=== PATIENT | female | born 1955 | race Caucasian/White ===

== ENCOUNTER 2024-02-18 04:28 | Emergency (ER) | payer MEDICARE ==
[~2024-02-18] VITALS: Ht 165.1 cm; Wt 73.9 kg
[2024-02-18 04:28] VITALS: BP 123/79; TEMP 97.1
[2024-02-18] MEDS ORDERED: LISI20TA37 PO (04:39)
[2024-02-18 05:28] LABS: BASO % 0.3 % (0.0-1.0); EOS # 0.1 10^3/uL (0.0-0.5); HEMATOCRIT 39.4 % (42.0-52.0); HEMOGLOBIN 13.5 g/dl (13.5-17.5); LYMPH % 29.6 % (24.0-44.0); MEAN CORPUSCULAR HEMOGLOBIN 30.4 pg (27.0-33.0); MEAN CORPUSCULAR HGB CONC 34.3 g/dl (32.0-36.5); MEAN CORPUSCULAR VOLUME 88.7 fl (80.0-96.0); MONO % 9.9 % (2.0-8.0); NEUTROPHILS % 58.8 % (36.0-66.0); PLATELET COUNT, AUTOMATED 374 10^3/uL (150-450); RED BLOOD COUNT 4.44 10^6/uL (4.30-6.10); WHITE BLOOD COUNT 10.2 10^3/uL (4.0-10.0)
[2024-02-18 05:50] LABS: LIPASE 35 U/L (12-53)
[2024-02-18 05:52] LABS: ALKALINE PHOSPHATASE 82 U/L (46-116); ALT/SGPT 33 U/L (7.0-40); AST/SGOT 19 U/L (<34); BILIRUBIN,DIRECT < 0.1 MG/DL (<0.4); BILIRUBIN,TOTAL 0.2 MG/DL (0.3-1.2); BLOOD UREA NITROGEN 21 MG/DL (9-23); CALCIUM LEVEL 9.1 MG/DL (8.3-10.6); CARBON DIOXIDE LEVEL 28 MMOL/L (20-31); CHLORIDE LEVEL 100 MMOL/L (98-107); CREATININE FOR GFR 0.75 MG/DL (0.70-1.30); GLOMERULAR FILTRATION RATE > 60.0 (>49); GLUCOSE, FASTING 110 MG/DL (74-106); POTASSIUM SERUM 4.2 MMOL/L (3.5-5.1); SODIUM LEVEL 135 MMOL/L (136-145); TOTAL PROTEIN 7.2 G/DL (5.7-8.2)
[2024-02-18] MEDS ORDERED: ISOVUE-370 76% 100ML VIAL As Ordered ONE (07:10)
[2024-02-18] MEDS: ONDANSETRON 4MG 2ML VIAL IV ONE (08:09)
[2024-02-18] MEDS: MORPHINE 4 MG/ML 1ML VIAL IV ONE (08:12)
[2024-02-18] MEDS: NS 500 ML IV ONE (08:16)
[2024-02-18 08:42] VITALS: O2SAT 96
[2024-02-18] MEDS ORDERED: metroNIDAZOLE (FLAGYL) 500MG TABLET PO ONE (08:45)
[2024-02-18] MEDS ORDERED: CIPROFLOXACIN 500MG TABLET PO ONE (08:45)
[2024-02-18] MEDS ORDERED: CIPR-249 PO (08:45)
[2024-02-18] MEDS ORDERED: ONDA-282 PO (08:46)
[2024-02-18] MEDS ORDERED: METR-265 PO (08:46)
[2024-02-18] MEDS ORDERED: PERC5TAB12 PO (08:46)
== END 2024-02-18 09:54 | disposition home or self-care (01) ==
LOC: M ED 04:28 → EDSEX 04:28 → M ED 09:54
DX: R10.9 Unspecified abdominal pain (principal); I10 Essential (primary) hypertension; K57.32 Diverticulitis of large intestine without perforation or abscess without bleeding; E27.8 Other specified disorders of adrenal gland; Z90.49 Acquired absence of other specified parts of digestive tract; Z88.8 Allergy status to other drugs, medicaments and biological substances
CPT/HCPCS: 74177; 80048; 80076; 83690; 85025; 93041; 96361; 96374; 96375; 99284; J2405; Q9967